=== PATIENT | male | born 1965 | race Caucasian/White ===

== ENCOUNTER 2018-09-19 19:16 | Emergency (ER) | payer OTHER ==
[2018-09-19 19:22] VITALS: BP 159/82
[2018-09-19] MEDS ORDERED: ACETAMINOPHEN 325 MG TAB PO ONE (19:41)
--- NOTE | 2018-09-19 19:41 | EDPHY ---
General Time Seen by Provider: 09/19/18 19:34 Narrative: CHIEF COMPLAINT: Hand pain HISTORY OF PRESENT ILLNESS: Patient presents by private vehicle with complaints of hand pain after fall. He reports working on his window well at home just prior to arrival when "I feel down into it, smashing the window and my hand." He states that he thinks he landed on his right hand at the bottom of the window well. He felt a sudden onset of pain in a popping sensation in the right hand over the 4th metacarpal. He has moderate to severe pain here worse with palpation and movement. Improved at rest. No numbness, tingling or weakness. He has minimal pain over a superficial knee injury he describes and left shoulder. He has no concern other than the right hand injury. He is right-hand dominant. Tetanus is up-to- date less than 4 years ago. No other associated complaints or modifying factors. DOMINANT EXTREMITY: Right-hand dominant ESTABLISHED ORTHOPEDIST: [facility] sent for Orthopedics REVIEW OF SYSTEMS: Ten systems reviewed and are negative unless otherwise noted in the HPI PAST MEDICAL HISTORY: Denies any medical problems PAST SURGICAL HISTORY: Othopedic SOCIAL HISTORY: Never smoker. [place] FAMILY HISTORY: Noncontributory EXAMINATION: General Appearance: Alert, no distress HEENT: Normocephalic and atraumatic. Pupils equal round reactive. EOM symmetric. No Palm sign or raccoon eyes. No outward signs of trauma. Neck: Supple nontender without crepitus. Cardiovascular: Radial pulses are symmetric at 2+. There is brisk cap refill in each finger of the right hand. 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 No laceration. No puncture. Extremities: Mild swelling, ecchymosis and tenderness to the right hand over the 4th and 5th metacarpals. There is mild crepitus to the 4th metacarpal. No tenderness to the right wrist or snuffbox. No tenderness of the right elbow or shoulder. Range of motion of the hands and wrist symmetric with normal cascade of all the fingers on the right hand without any undermining. Right upper extremity soft in all compartments. Psychiatric: Mood and affect normal DIFFERENTIAL DIAGNOSES: Including but not limited to sprain, strain, fracture, dislocation, subluxation MDM: 7:35 p.m. Mechanical fall with pain in the right hand after blunt trauma. Neuro intact distally with no pain in the snuffbox or ipsilateral elbow. Full range of motion without deficit. I have ordered x-ray of the hand. He has no concerns for his injuries elsewhere. 7:50 p.m. X-ray as read by me, without radiologist reveals fracture of the 4th metacarpal. This is an oblique, comminuted fracture. Minimal displacement. He will be placed in an ulnar gutter splint. We discussed ice and elevation. We discussed anti-inflammatories and or Tylenol. We discussed follow up with hand surgeon for definitive care. 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 I have answered all his questions. Discharged home stable condition. SUPERVISION: This patient was independently evaluated without direct involvement of or examination by the attending physician. - Diagnostics Imaging Results: Imaging Impressions Hand X-Ray 09/19/18 19:25 Impression: Oblique comminuted midshaft right fourth metacarpal fracture. Imaging: I viewed and interpreted images myself - History History Review: I reviewed the patient's medical records Smoking Status: Never smoked - Objective Vital Signs: Initial Vital Signs Temperature (C) 98.4 F 09/19/18 19:19 Heart Rate 65 09/19/18 19:19 Respiratory Rate 18 09/19/18 19:19 Blood Pressure 159/82 H 09/19/18 19:19 O2 Sat (%) 96 09/19/18 19:19 O2 Delivery Mode Room Air Allergies/Adverse Reactions: No Known Allergies Allergy (Unverified 09/19/18 19:22) Home Medications: Medication Instructions Recorded NK [No Known Home Meds] 09/19/18 Medications Given: Discontinued Medications Acetaminophen (Tylenol) 650 mg PO EDNOW ONE Stop: 09/19/18 19:42 Last Admin: 09/19/18 19:56 Dose: 650 mg Departure - Departure Disposition: Home, Routine, Self-Care Clinical Impression: Unspecified fracture of fourth metacarpal bone, right hand, initial encounter for closed fracture Condition: Good Instructions: Hand Fracture (ED) Additional Instructions: 1. Medications as discussed as needed, including ibuprofen 600mg every 8 hours as needed. Do not take in conjunction with anticoagulants or other NSAIDs 2. Follow up with Orthopedics for definitive care 3. Rest, ice and elevation often. 4. ED precautions as discussed for worsening pain, redness, fever, changes in range of motion, changes in sensation Referrals: Mervin Carbajal MD [Medical Doctor] - As per Instructions
== END 2018-09-19 20:05 | disposition home or self-care (01) ==
PROC: 2W3EX1Z Immobilization of Right Hand using Splint (ICD-10-PCS; principal; 2018-09-19)
DX: S62.304A Unspecified fracture of fourth metacarpal bone, right hand, initial encounter for closed fracture (principal); W17.89XA Other fall from one level to another, initial encounter; Y92.007 Garden or yard of unspecified non-institutional (private) residence as the place of occurrence of the external cause

== ENCOUNTER → 2019-03-18 | Outpatient (CLI) | payer OTHER | LOC: FIMAGING 17:40 | DX: S62.324D Displaced fracture of shaft of fourth metacarpal bone, right hand, subsequent encounter for fracture with routine healing (principal) ==